=== PATIENT | female | born 1975 | race Caucasian/White ===

== ENCOUNTER 2025-01-03 05:58 | Outpatient (RCR) | payer OTHER, SELFPAY | END 2025-01-03 23:59 | disposition home or self-care (01) | LOC: RPT 05:58 | PROVIDERS: ATTENDING PHYSICIAN Family Medicine | DX: R42 Dizziness and giddiness (principal); Z73.6 Limitation of activities due to disability; R26.2 Difficulty in walking, not elsewhere classified | CPT/HCPCS: 97112; 97162 ==

== ENCOUNTER 2025-02-03 16:09 | Outpatient (RCR) | payer OTHER, SELFPAY | END 2025-02-03 23:59 | disposition home or self-care (01) | LOC: RPT 16:09 | PROVIDERS: ATTENDING PHYSICIAN Family Medicine | DX: R42 Dizziness and giddiness (principal); Z73.6 Limitation of activities due to disability; R26.2 Difficulty in walking, not elsewhere classified; R53.83 Other fatigue | CPT/HCPCS: 97110; 97112 ==

== ENCOUNTER 2025-02-24 16:05 | Outpatient (RCR) | payer OTHER, SELFPAY | END 2025-02-24 23:59 | disposition home or self-care (01) | LOC: RPT 16:05 | PROVIDERS: ATTENDING PHYSICIAN Family Medicine | DX: R42 Dizziness and giddiness (principal); Z73.6 Limitation of activities due to disability; R26.2 Difficulty in walking, not elsewhere classified; R53.83 Other fatigue | CPT/HCPCS: 97110; 97112 ==

== ENCOUNTER 2025-03-23 16:15 | Outpatient (RCR) | payer OTHER, SELFPAY | END 2025-03-23 23:59 | disposition home or self-care (01) | LOC: RPT 16:15 | PROVIDERS: ATTENDING PHYSICIAN Family Medicine | DX: R42 Dizziness and giddiness (principal); Z73.6 Limitation of activities due to disability; R26.2 Difficulty in walking, not elsewhere classified; R53.83 Other fatigue | CPT/HCPCS: 97110; 97112 ==